=== PATIENT | male | born 1955 | race Caucasian/White ===

== ENCOUNTER 2023-10-11 23:16 | Observation (INO) ==
[2023-10-11] MEDS: OPTIRAY 320 125ml IV ONE (23:30)
[2023-10-11 23:54] LABS: iSTAT Hemoglobin 12.6 g/dl (14.0-18.0); iSTAT Ionized Calcium 1.07 mmol/l (1.12-1.32); iSTAT Potassium 3.6 mmol/L (3.3-5.0)
--- NOTE | 2023-10-11 23:59 | CT Scan Report ---
Exam(s): CTA HEAD With Contrast IV Amt: 119 cc opti 320 EXAM: CT Angiography Head With Intravenous Contrast CLINICAL HISTORY: Reason for exam: neuro deficit, acute stroke suspected. TECHNIQUE: Axial computed tomographic angiography images of the head with intravenous contrast. Automated exposure control was utilized for the study. A dose lowering technique was utilized adhering to the principles of ALARA. MIP reconstructed images were created and reviewed. Mild motion artifact. CONTRAST: Patient received 119 cc opti 320 of IV contrast COMPARISON: Head CT done earlier. FINDINGS: Right internal carotid artery: Patent. Right anterior cerebral artery: Patent. Right middle cerebral artery: Patent. Right posterior cerebral artery: Patent. Right vertebral artery: Patent. Left internal carotid artery: Patent. Left anterior cerebral artery: Patent. Left middle cerebral artery: Patent. Left posterior cerebral artery: Patent. Left vertebral artery: Patent. Basilar artery: Patent. Other: No AVM or aneurysm with attention to the left posterior temporal region. IMPRESSION: 1. No aneurysm or large vessel occlusion. Communications: Call Doctor Stroke Electronically signed by: Evon Marshall M.D. 10/11/23 23:58 PM
--- NOTE | 2023-10-12 | CT Scan Report ---
Exam(s): CT HEAD Without Contrast EXAM: CT Head Without Intravenous Contrast CLINICAL HISTORY: Reason for exam: neuro deficit, acute stroke suspected. TECHNIQUE: Axial computed tomography images of the head/brain without intravenous contrast. Automated exposure control was utilized for the study. A dose lowering technique was utilized adhering to the principles of ALARA. COMPARISON: None. FINDINGS: Brain: There is a 13 mm hypodensity in the left posterior temporal lobe, of uncertain significance, may be chronic, such as chronic infarct or unusual cavernous hemangioma; though neoplasm not excluded. MRI brain with and without contrast recommended for further evaluation. No mass effect or acute infarct. No acute hemorrhage. Mild atrophy and chronic white matter disease. Ventricles: No hydrocephalus or midline shift. Bones/joints: No acute finding. Soft tissues: No scalp hematoma. Visualized Sinuses: Opacified right maxillary sinus, otherwise, clear. Mastoid air cells: No mastoid effusion. IMPRESSION: 1. Nonspecific hypodensity left temporal lobe, may be chronic, though MRI brain with and without contrast recommended to entirely rule out neoplasm. Communications: Call Doctor Stroke Electronically signed by: Evon Marshall M.D. 10/11/23 23:58 PM
--- NOTE | 2023-10-12 00:01 | CT Scan Report ---
Exam(s): CTA NECK With Contrast IV Amt: 119 cc opti 320 EXAM: CT Angiography Neck With Intravenous Contrast CLINICAL HISTORY: Reason for exam: neuro deficit, acute stroke suspected. TECHNIQUE: Routine carotid CT angiography protocol was performed with intravenous contrast. NASCET criteria using the distal ICAs for comparison were used for evaluation of stenoses. Automated exposure control was utilized for the study. A dose lowering technique was utilized adhering to the principles of ALARA. MIP reconstructed images were created and reviewed. Artifact from metal associated with the right shoulder. CONTRAST: Patient received 119 cc opti 320 of IV contrast COMPARISON: None. FINDINGS: Right common carotid artery: Patent. Right internal carotid artery: Patent. Right vertebral artery: Patent. Codominant. Left common carotid artery: Patent. Left internal carotid artery: Patent. Left vertebral artery: Patent. Other: Atherosclerosis bilateral carotid bifurcation, without significant stenosis. IMPRESSION: 1. No dissection, occlusion, or significant stenosis. CAROTID STENOSIS REFERENCE USING NASCET CRITERIA: % ICA stenosis = (1 - narrowest ICA diameter/diameter of distal cervical ICA) x 100. Mild - <50% stenosis. Moderate - 50-69% stenosis. Severe - 70-94% stenosis. Near occlusion - 95-99% stenosis. Occluded - 100% stenosis. Communications: Call Doctor Stroke Electronically signed by: Evon Marshall M.D. 10/12/23 00:00 AM
[2023-10-12 00:03] LABS: Basophils # (auto) 0.07 K/uL (0.00-0.20); Basophils % (auto) 0.9 %; Eosinophils # (auto) 0.47 K/uL (0.00-0.50); Eosinophils % (auto) 5.9 %; Hematocrit (blood only) 36.5 % (42.0-52.0); Hemoglobin 12.8 g/dl (14.0-18.0); Immature Granulocytes # (auto) 0.04 K/uL (0.01-0.20); Immature Granulocytes % (auto) 0.5 %; Lymphocytes # (auto) 1.26 K/uL (1.20-3.40); Lymphocytes % (auto) 15.9 %; Mean Corpuscular Hemoglobin 30.5 pg (25.0-34.0); Mean Corpuscular Hgb Conc 35.1 g/dL (32.0-36.0); Mean Corpuscular Volume 86.9 fL (80.0-100.0); Mean Platelet Volume 9.1 fL (9.4-12.4); Monocytes # (auto) 0.69 K/uL (0.11-0.59); Monocytes % (auto) 8.7 %; Neutrophils # (auto) 5.41 K/uL (1.40-6.50); Neutrophils % (auto) 68.1 %; Platelet Count 284 K/uL (130-400); RDW Coefficient of Variation 12.7 % (11.5-14.5); RDW Standard Deviation 39.8 fL (36.4-46.3); White Blood Count 7.94 K/ul (4.8-10.8)
[2023-10-12] MEDS: Patient's ALLERGY Info needs ENTERED STA (00:04)
[2023-10-12] MEDS: Patient's HEIGHT &/or WEIGHT Needed STA (00:04)
[2023-10-12 00:16] LABS: Albumin Globulin Ratio 1.2 (0.9-2); Albumin Level 3.9 gm/dl (3.4-5.0); BUN Creatinine Ratio 14.2 (10-20); Calcium 9.2 mg/dl (8.6-10.3); Creatinine Clr Calc Pharmacy 81.6 ml/min; Est GFR (African American) 84.3 ml/min; Est GFR (Non-African American) 72.8 ml/min; Globulin 3.2 gm/dl (2.5-4.0); Magnesium 1.6 mg/dl (1.7-2.4); Potassium 3.6 mmol/L (3.5-5.1); Total Protein 7.1 gm/dl (6.0-8.3)
[2023-10-12 00:23] LABS: Troponin I High Sensitivity 7.1 pg/ml (0-20)
[2023-10-12 00:30] LABS: Partial Thromboplastin Time 27 Seconds (21-31); Prothrombin Time 11.3 Seconds (9.0-12.0)
--- NOTE | 2023-10-12 00:32 | Emergency Department Note ---
Impression & Plan Stroke-like symptoms Admit to the [facility] ED Provider Note NAME: HAILEY GIRON AGE: 67 SEX: Male INFORMANT: EMS ED PROVIDER(S): Catrachita Stein DO CHIEF COMPLAINT: stroke symptoms PLAN: Disposition: admit to the [facility] MEDICAL DECISION MAKING: this is a 67-year-old male patient who presents to the emergency department with altered mental status. Patient's last known well time was 1900 tonight. Patient's noted that he was having some difficulty with speech that seemed to be worsening throughout the evening. The patient is visiting from [place]. EMS was called to their hotel. Patient has a baseline tremor for which she takes Keppra. He is followed at [facility]. Patient was a stroke alert upon presentation to the emergency department. He went directly for CT scan of the brain, CT angiogram of the brain and neck which showed hypodensity in the left temporal region of the brain but no acute infarct or hemorrhage. The patient was not a candidate for tPA because last known well was approximately 5 hours before presentation and his symptoms were improving. Laboratory studies revealed no evidence of hypoglycemia or significant hyperglycemia. Coagulation studies were normal. There is no significant leukocytosis or anemia. I discussed the case with the [facility] doctor as well as the [facility] neurologist. The patient presented to the ER primarily with an expressive aphasia. It was improving throughout his stay here in the emergency department. He will be given oral aspirin, oral atorvastatin, IV normal saline, IV magnesium and will go for MRI with and without contrast and with SWI sequencing to rule out hemorrhage. Patient will also receive an EEG as an inpatient. I discussed the case with the [facility] Hospitalist and they will evaluate for further inpatient care. Care/management discussed with: Dr. Herb johnson; policy manager; [facility] neurologist, [facility] Triage Nursing notes: reviewed and agree with them. Vital Signs: reviewed and remarkable for hypertension Additional History obtained from: EMS and the Prior/ Outside/ External records reviewed: [none] Differential Diagnosis: CVA, intracranial hemorrhage, seizure, hypoglycemia Diagnostics, independently interpreted by me: ECG: patient suffers from tremors and has significant baseline artifact- difficult to interpret-baseline sinus rhythm Cardiac Monitoring: sinus rhythm at 88 Imaging studies: CT scan of the brain: As per stat rad CTA brain: As per stat rad CTA neck: As per stat rad HPI: 67 year old Male arrives for evaluation of altered mental status/ stroke symptoms. around 7 PM this evening, the patient began to have difficulty with speech according to the . They are visiting from the [facility] and staying in a hotel. He does suffer from a baseline tremor and diabetes but no history of seizures or stroke. Patient had some beer drinker around 1 PM in the afternoon PAST MEDICAL HISTORY: Diabetes, tremor, hypertension, hyperlipidemia SOCIAL HISTORY: lives with his , he lives in [place] with his HOME MEDICATIONS: see list ALLERGIES: See list VITALS: See Below PHYSICAL EXAMINATION: HEENT: Head - normocephalic and atraumatic. Pupils are equal, round, and reactive to light. Extraocular eye muscles are intact and sclera are anicteric. Ears - bilaterally patent canals with noninjected tympanic membranes and no evidence of hemotympanum. Nose - moist nasal mucosa without discharge. Mouth - moist buccal mucosa. Oropharynx is nonerythematous and there is no tonsillar exudate or edema noted. Neck: Supple; no JVD, nuchal rigidity, cervical lymphadenopathy, or auscultated bruits. Heart: Regular rate and rhythm. There is a normal S1 and S2 with no murmurs, clicks, or gallops appreciated. Lungs: Clear to auscultation bilaterally with no wheezes, rales, or rhonchi. Abdomen: Soft, completely nontender, nondistended, with good bowel sounds. There are no palpable pulsatile masses or hepatosplenomegaly. There is no guarding, rigidity, or rebound noted. Extremities: No evidence of cyanosis, clubbing, or edema. There are easily palpable peripheral pulses. Neuro: Patient has a significant baseline tremor. The patient is awake and alert. He is able to follow commands. He is unable to answer questions and has an expressive aphasia. He is unable to identify simple objects. He has 5 out of 5 muscle strength in all 4 extremities. He seems to have normal Ysbtay-qb-faje ability that is slightly difficult to test because of his tremor. Emergency department course: The patient was evaluated in room A-1 as a stroke alert after coming from CAT scan. Make complete neurological evaluation was performed. Laboratory studies were drawn. An order was placed for continuous cardiac monitoring. The patient was in a normal sinus rhythm at a rate of 88. A twelve-lead EKG was attempted. I discussed the case with the [facility] neurologist. Patient was bolused with IV normal saline solution and started on IV normal saline drip. He was given oral aspirin and oral atorvastatin. He was started on IV magnesium. Patient's arrived at the bedside and was able to give additional history. I discussed the case with the [facility] Hospitalist and they will evaluate for further inpatient care. Past Med/Surg History Problem List (Updated 10/12/23 @ 18:27 by Catrachita Stein DO) Stroke-like symptoms (Acute) Social History Smoking Status: Former smoker Hx Alcohol Use: Yes Alcohol type: beer, wine and hard liquor Hx Substance Use: Yes Last Used Substance: Days (ago) Substance Use Type Other:: medical marijuana daily for sleep Communication Ability: Effective [employer] Maintainer Required: No Beliefs That Will Affect Care: None Current Living Situation: Spouse Other Information That Helps Us Care for You: No Feels Safe at Home: Yes Safety Concerns: Feels Safe At This Time Assistive Devices: Glasses Allergies Allergies Allergy/AdvReac Type Severity Reaction Status Date / Time indomethacin Allergy Unknown Verified 10/12/23 12:34 allopurinol AdvReac Nausea Verified 10/12/23 01:16 duloxetine [From Cymbalta] AdvReac hypnagogia Verified 10/12/23 01:16 Fish Containing Products AdvReac Unknown Verified 10/12/23 12:34 shellfish derived AdvReac Unknown Verified 10/12/23 12:34 Home Meds Home Medications Medication Instructions Recorded Confirmed amlodipine 10 mg tablet 10 mg PO DAILY 10/12/23 10/12/23 buspirone 15 mg tablet 15 mg PO BID 10/12/23 10/12/23 colchicine 0.6 mg tablet 0.6 mg PO DAILY 10/12/23 10/12/23 febuxostat 40 mg tablet 40 mg PO DAILY 10/12/23 10/12/23 levetiracetam 500 mg tablet 500 mg PO BID 10/12/23 10/12/23 lorazepam 0.5 mg tablet 0.5 mg PO DAILY PRN Anxiety 10/12/23 10/12/23 metformin 500 mg tablet,extended 500 mg PO QAM 10/12/23 10/12/23 release 24 hr pravastatin 80 mg tablet 80 mg PO DAILY 10/12/23 10/12/23 propranolol 120 mg capsule,24 120 mg PO DAILY 10/12/23 10/12/23 hr,extended release semaglutide 2 mg/dose (8 mg/3 mL) 2 mg subcut .WEEK 10/12/23 10/12/23 subcutaneous pen injector (Ozempic) trazodone 150 mg tablet 150 mg PO HS 10/12/23 10/12/23 venlafaxine 150 mg 150 mg PO QAM 10/12/23 10/12/23 capsule,extended release 24 hr venlafaxine 75 mg capsule,extended 75 mg PO QAM 10/12/23 10/12/23 release 24 hr Results & Data (ED) Vital Signs Vital Signs - 24 hr 10/11/23 23:53 10/12/23 00:01 10/12/23 00:03 Temperature 37 C Temperature Source Oral Pulse Rate 75 76 Pulse Rate [Finger] 88 Pulse Rhythm Regular Pulse Rhythm [Finger] Regular Pulse Strength Normal Pulse Strength [Finger] Normal Respiratory Rate 18 20 Respiratory Effort / Characteristics Non-Labored Spontaneous Non-Labored Spontaneous Respiratory Depth Normal Normal Blood Pressure 162/98 H Blood Pressure [Right Arm] 162/98 H Blood Pressure Mean 119 Blood Pressure Mean [Right Arm] 119 Blood Pressure Position Sitting Pulse Oximetry 100 99 Oxygen Delivery Method Room Air Room Air Sepsis Recent Fever Within 48 Hours No Sepsis New/Unexplained Change in Mental Status N/A Sepsis Action Taken by Nursing No Action Required Laboratory Data 10/12/23 05:21 10/12/23 05:21 Lab Results 10/11/23 10/11/23 10/11/23 Range/Units 23:38 23:41 23:42 WBC 7.94 (4.8-10.8) K/ul RBC 4.20 L (4.70-6.10) M/uL Hgb 12.8 L (14.0-18.0) g/dl POC Hgb 12.6 L (14.0-18.0) g/dl Hct 36.5 L (42.0-52.0) % POC Hct 37 L (42-52) % MCV 86.9 (80.0-100.0) fL MCH 30.5 (25.0-34.0) pg MCHC 35.1 (32.0-36.0) g/dL RDW Std Deviation 39.8 (36.4-46.3) fL RDW Coeff of [place] 12.7 (11.5-14.5) % Plt Count 284 (130-400) K/uL MPV 9.1 L (9.4-12.4) fL Immature Gran % (Auto) 0.5 % Neut % (Auto) 68.1 % Lymph % (Auto) 15.9 % Emmons % (Auto) 8.7 % Eos % (Auto) 5.9 % Baso % (Auto) 0.9 % Neut # (Auto) 5.41 (1.40-6.50) K/uL Lymph # (Auto) 1.26 (1.20-3.40) K/uL Emmons # (Auto) 0.69 H (0.11-0.59) K/uL Eos # (Auto) 0.47 (0.00-0.50) K/uL Baso # (Auto) 0.07 (0.00-0.20) K/uL Immature Gran # (Auto) 0.04 (0.01-0.20) K/uL PT 11.3 (9.0-12.0) Seconds INR 1.0 (0.9-1.1) APTT 27 (21-31) Seconds PTT Ratio 1.0 POC Sodium 134 L (135-144) mmol/L Sodium 132 L (136-145) mmol/L POC Potassium 3.6 (3.3-5.0) mmol/L Potassium 3.6 (3.5-5.1) mmol/L POC Chloride 101 (101-112) mmol/L Chloride 101 (98-107) mmol/L Carbon Dioxide 19 L (21-32) mmol/L POC Total CO2 17 L (24-31) mmol/L Anion Gap 12 H (3-11) POC Anion Gap 20.0 (16-25) mmol/L POC BUN 13 (7-18) mg/dl BUN 15 (6-23) mg/dl Creatinine 1.06 (0.6-1.4) mg/dl POC Creatinine 1.0 (0.6-1.3) mg/dl Est Cr Clr Drug Dosing 81.6 ml/min Est GFR ( Amer) 84.3 ml/min Est GFR (Non-Af Amer) 72.8 ml/min BUN/Creatinine Ratio 14.2 (10-20) Glucose 134 H (70-99(Fasting)) mg/dl POC Glucose (other) 131 H (70-99) mg/dl Calcium 9.2 (8.6-10.3) mg/dl POC Ioniz Calcium Taz 1.07 L (1.12-1.32) mmol/l Magnesium 1.6 L (1.7-2.4) mg/dl Total Bilirubin 1.0 (0.2-1.0) mg/dl AST 15 (13-39) U/L ALT 10 (7-52) U/L Alkaline Phosphatase 65 (34-104) U/L Troponin I High Sens 7.1 (0-20) pg/ml Total Protein 7.1 (6.0-8.3) gm/dl Albumin 3.9 (3.4-5.0) gm/dl Globulin 3.2 (2.5-4.0) gm/dl Albumin/Globulin Ratio 1.2 (0.9-2) Blood Type O Positive Antibody Screen NEGATIVE Administered Medications Amlodipine Besylate (Amlodipine Besylate 5 Mg Tab) 10 mg PO DAILY RANDY Stop: 11/11/23 08:59 Last Admin: 10/12/23 08:08 Dose: 10 mg Documented By: KHADRA Buspirone HCl (Buspirone 15 Mg Tab) 15 mg PO BID RANDY Stop: 11/11/23 08:59 Last Admin: 10/12/23 08:09 Dose: 15 mg Documented By: KHADRA Colchicine (Colchicine 0.6 Mg Tab) 0.6 mg PO DAILY RANDY Stop: 11/11/23 08:59 Last Admin: 10/12/23 08:08 Dose: 0.6 mg Documented By: KHADRA Insulin Aspart (Insulin Aspart Per Unit Charge) 0 units SC Q6 RANDY Stop: 11/11/23 05:59 Last Admin: 10/12/23 17:15 Dose: Not Given Documented By: Admin: 10/12/23 12:19 Dose: Not Given Documented By: Admin: 10/12/23 06:36 Dose: Not Given Documented By: ANDREWS Levetiracetam (Levetiracetam 500 Mg Tab) 500 mg PO BID RANDY Stop: 11/11/23 08:59 Last Admin: 10/12/23 08:09 Dose: 500 mg Documented By: KHADRA Miscellaneous (Febuxostat 40 Mg - Order Awaiting Action) 1 each N/A QS [facility] Stop: 11/11/23 08:29 Last Admin: 10/12/23 12:20 Dose: Not Given Documented By: Admin: 10/12/23 08:10 Dose: Not Given Documented By: KHADRA Propranolol HCl (Propranolol Hcl 60 Mg [place]) 120 mg PO DAILY [facility] Stop: 11/11/23 08:59 Last Admin: 10/12/23 08:09 Dose: 120 mg Documented By: KHADRA Venlafaxine HCl (Venlafaxine Hcl Xr 75 Mg Capxr) [facility] [place] Stop: 11/11/23 08:59 Last Admin: 10/12/23 08:09 Dose: 75 mg Documented By: KHADRA Venlafaxine HCl (Venlafaxine Hcl Xr 150 Mg Capxr) 150 mg PO [facility] Stop: 11/11/23 08:59 Last Admin: 10/12/23 08:09 Dose: 150 mg Documented By: KHADRA Discontinued Medications Aspirin (Aspirin Chew 324 Mg) 324 mg PO NOW STA Stop: 10/12/23 00:44 Last Admin: 10/12/23 00:54 Dose: 324 mg Documented By: MICKEY Aspirin (Aspirin 81 Mg Ectab) 81 mg PO [facility] Stop: 11/11/23 13:14 Last Admin: 10/12/23 13:25 Dose: Not Given Documented By: KHADRA Atorvastatin Calcium (Atorvastatin 40 Mg Tab) 40 mg PO QA STA Stop: 10/12/23 00:44 Last Admin: 10/12/23 00:54 Dose: 40 mg Documented By: MICKEY Clopidogrel Bisulfate (Clopidogrel Bisulfate 75 Mg Tab) 75 mg PO NOW ONE Stop: 10/12/23 13:17 Last Admin: 10/12/23 14:55 Dose: 75 mg Documented By: KHADRA Gadobutrol (Gadobutrol 30ml Vial) 9 ml IV ONCE ONE Stop: 10/12/23 13:49 Last Admin: 10/12/23 13:49 Dose: 9 ml Documented By: VICKY Sodium Chloride (Nss) 500 mls @ 999 mls/hr IV .Q31M ONE Stop: 10/12/23 01:13 Last Infusion: 10/12/23 01:27 Dose: Infused Documented By: Admin: 10/12/23 00:59 Dose: 999 mls/hr Documented By: MICKEY Magnesium Sulfate/Dextrose (Magnesium Sulfate / D5w) 1 gm in 100 mls @ 200 mls/hr IV Q30M RANDY Stop: 10/12/23 01:44 Last Infusion: 10/12/23 02:00 Dose: Infused Documented By: Admin: 10/12/23 01:27 Dose: 200 mls/hr Documented By: Infusion: 10/12/23 01:24 Dose: Infused Documented By: Admin: 10/12/23 00:54 Dose: 200 mls/hr Documented By: MICKEY Sodium Chloride (Nss) 500 mls @ 125 mls/hr IV .Q4H RANDY Stop: 11/11/23 00:44 Last Infusion: 10/12/23 03:01 Dose: Infused Documented By: Admin: 10/12/23 00:59 Dose: 125 mls/hr Documented By: MICKEY Sodium Chloride (Nss) 1,000 mls @ 100 mls/hr IV .Q10H RANDY Stop: 10/12/23 12:53 Last Infusion: 10/12/23 13:09 Dose: Infused Documented By: Admin: 10/12/23 03:09 Dose: 100 mls/hr Documented By: ANDREWS Acetaminophen (Ofirmev) 1,000 mg in 100 mls @ 400 mls/hr IV NOW STA Stop: 10/12/23 03:35 Last Infusion: 10/12/23 04:15 Dose: Infused Documented By: Admin: 10/12/23 03:48 Dose: 400 mls/hr Documented By: ANDREWS Ioversol (Optiray 320 125ml) 119 ml IV ONCE ONE Stop: 10/11/23 23:30 Last Admin: 10/11/23 23:30 Dose: 119 ml Documented By: JAMILAH Miscellaneous (Patient's Height &/Or Weight Needed) 1 each N/A NOW STA Stop: 10/11/23 23:40 Last Admin: 10/12/23 00:04 Dose: Not Given Documented By: MICKEY Gutiérrezcellaneous Information (Patient's Allergy Info Needs Entered) 1 each N/A NOW STA Stop: 10/11/23 23:40 Last Admin: 10/12/23 00:04 Dose: Not Given Documented By: MICKEY Pravastatin Sodium (Pravastatin Sod 40 Mg Tab) 80 mg PO DAILY RANDY Stop: 11/11/23 08:59 Last Admin: 10/12/23 08:09 Dose: 80 mg Documented By: KHADRA Imaging Data Radiologist's Impression: Head CT 10/11/23 23:27 CR Exam(s): CT HEAD Without Contrast EXAM: CT Head Without Intravenous Contrast CLINICAL HISTORY: Reason for exam: neuro deficit, acute stroke suspected. TECHNIQUE: Axial computed tomography images of the head/brain without intravenous contrast. Automated exposure control was utilized for the study. A dose lowering technique was utilized adhering to the principles of ALARA. COMPARISON: None. FINDINGS: Brain: There is a 13 mm hypodensity in the left posterior temporal lobe, of uncertain significance, may be chronic, such as chronic infarct or unusual cavernous hemangioma; though neoplasm not excluded. MRI brain with and without contrast recommended for further evaluation. No mass effect or acute infarct. No acute hemorrhage. Mild atrophy and chronic white matter disease. Ventricles: No hydrocephalus or midline shift. Bones/joints: No acute finding. Soft tissues: No scalp hematoma. Visualized Sinuses: Opacified right maxillary sinus, otherwise, clear. Mastoid air cells: No mastoid effusion. IMPRESSION: 1. Nonspecific hypodensity left temporal lobe, may be chronic, though MRI brain with and without contrast recommended to entirely rule out neoplasm. Communications: Call Doctor Stroke Electronically signed by: Evon Marshall M.D. 10/11/23 23:58 PM Head CTA 10/11/23 23:27 CR Exam(s): CTA HEAD With Contrast IV Amt: 119 cc opti 320 EXAM: CT Angiography Head With Intravenous Contrast CLINICAL HISTORY: Reason for exam: neuro deficit, acute stroke suspected. TECHNIQUE: Axial computed tomographic angiography images of the head with intravenous contrast. Automated exposure control was utilized for the study. A dose lowering technique was utilized adhering to the principles of ALARA. MIP reconstructed images were created and reviewed. Mild motion artifact. CONTRAST: Patient received 119 cc opti 320 of IV contrast COMPARISON: Head CT done earlier. FINDINGS: Right internal carotid artery: Patent. Right anterior cerebral artery: Patent. Right middle cerebral artery: Patent. Right posterior cerebral artery: Patent. Right vertebral artery: Patent. Left internal carotid artery: Patent. Left anterior cerebral artery: Patent. Left middle cerebral artery: Patent. Left posterior cerebral artery: Patent. Left vertebral artery: Patent. Basilar artery: Patent. Other: No AVM or aneurysm with attention to the left posterior temporal region. IMPRESSION: 1. No aneurysm or large vessel occlusion. Communications: Call Doctor Stroke Electronically signed by: Evon Marshall M.D. 10/11/23 23:58 PM Neck CTA 10/11/23 23:27 CR Exam(s): CTA NECK With Contrast IV Amt: 119 cc opti 320 EXAM: CT Angiography Neck With Intravenous Contrast CLINICAL HISTORY: Reason for exam: neuro deficit, acute stroke suspected. TECHNIQUE: Routine carotid CT angiography protocol was performed with intravenous contrast. NASCET criteria using the distal ICAs for comparison were used for evaluation of stenoses. Automated exposure control was utilized for the study. A dose lowering technique was utilized adhering to the principles of ALARA. MIP reconstructed images were created and reviewed. Artifact from metal associated with the right shoulder. CONTRAST: Patient received 119 cc opti 320 of IV contrast COMPARISON: None. FINDINGS: Right common carotid artery: Patent. Right internal carotid artery: Patent. Right vertebral artery: Patent. Codominant. Left common carotid artery: Patent. Left internal carotid artery: Patent. Left vertebral artery: Patent. Other: Atherosclerosis bilateral carotid bifurcation, without significant stenosis. IMPRESSION: 1. No dissection, occlusion, or significant stenosis. CAROTID STENOSIS REFERENCE USING NASCET CRITERIA: % ICA stenosis = (1 - narrowest ICA diameter/diameter of distal cervical ICA) x 100. Mild - <50% stenosis. Moderate - 50-69% stenosis. Severe - 70-94% stenosis. Near occlusion - 95-99% stenosis. Occluded - 100% stenosis. Communications: Call Doctor Stroke Electronically signed by: Evon Marshall M.D. 10/12/23 00:00 AM Discharge Plan Visit Data Chief Complaint: Stroke Alert Stated Complaint: Stroke Symptoms ED Provider: Catrachita Stein Discharge Problem: Stroke-like symptoms Patient Disposition: Admitted As Inpatient Discharge Instructions Interventions: ED Discharge Assessment Last Done: 10/12/23 02:36
[2023-10-12] MEDS: MAGNESIUM SULFATE / D5W 1 GM/100 ML BAG IV SCH (00:54)
[2023-10-12] MEDS: ATORVASTATIN 40 MG TAB PO STA (00:54)
[2023-10-12] MEDS: ASPIRIN CHEW 324 MG PO STA (00:54)
[2023-10-12] MEDS: SODIUM CHLORIDE 0.9% 500 ML IV ONE (00:59)
[2023-10-12] MEDS: SODIUM CHLORIDE 0.9% 500 ML IV SCH (00:59)
--- NOTE | 2023-10-12 01:58 | History & Physical Report ---
Date of Service October 12, 2023 Assessment & Plan (1) Stroke-like symptoms: Plan: 67-year-old male with past medical history significant for diabetes, hypertension, hyperlipidemia, tremors, depression who is from [facility], came to [employer] for [place] [facility] 911 get together presents with strokelike symptoms started around 7 PM. Patient had episode of vomiting and then suddenly could not talk. EMS was called and per EMS patient also had some difficulty swallo wing. Patient also seemed confused. Patient was stroke alert. Initial workup with CT head CTA head and neck with unremarkable. As patient symptoms were improving and he was out of the window TNK was not given. Currently patient is alert and oriented x 3. Answering appropriately. He has tremors which is baseline as per his . He is on Keppra for tremors. Never had this kind of episode before. Denies any headache. Vision is okay. Still has some nausea. There was some runny nose today. No cough. No fevers. Denies any chest pain or shortness of breath. No abdominal pain. Normal bowel and bladder movements. Hemodynamics are okay currently. Strokelike symptoms Patient seem to had expressive aphasia which is improved now CT head, CTA head and neck unremarkable [facility] was contacted by ER Will follow MRI brain with and without contrast and also EEG Speech evaluation PT OT Follow lipid profile HbA1c level Continue home aspirin and statin Telemetry Gentle fluids N.p.o. for now until speech evaluation Consult neurology in a.m. for further recommendations Hypertension Continue home amlodipine and propranolol Hyperlipidemia Continue home statin Diabetes Ozempic will be held Will hold metformin Sliding scale Follow HbA1c levels and blood sugars Depression Continue home medications Tremors On propranolol and Keppra Gout Seems to be on colchicine and febuxostat Hyponatremia Sodium 132 Getting fluids Will follow labs DVT prophylaxis SCDs for now Disposition Telemetry Full code. History of Present Illness Chief Complaint: Strokelike symptoms Primary Care Provider: KISHA CARPENTER 67-year-old male with past medical history significant for diabetes, hypertension, hyperlipidemia, tremors, depression who is from [facility], came to [employer] for [place] [facility] 911 get together presents with strokelike symptoms started around 7 PM. Patient had episode of vomiting and then suddenly could not talk. EMS was called and per EMS patient also had some difficulty swallowing. Patient also seemed confused. Patient was stroke alert. Initial workup with CT head CTA head and neck with unremarkable. As patient symptoms were improving and he was out of the window TNK was not given. Currently patient is alert and oriented x 3. Answering appropriately. He has tremors which is baseline as per his . He is on Keppra for tremors. Never had this kind of episode before. Denies any headache. Vision is okay. Still has some nausea. There was some runny nose today. No cough. No fevers. Denies any chest pain or shortness of breath. No abdominal pain. Normal bowel and bladder movements. Hemodynamics are okay currently. Past medical history. As mentioned above Past surgical history. Right shoulder replacement Social history. No smoking. Alcohol occasional. No drug use. Family history. Father had stroke. Paternal aunt had colon cancer. Allergies Allergy/AdvReac Type Severity Reaction Status Date / Time indomethacin Allergy Unknown Verified 10/12/23 01:16 allopurinol AdvReac Nausea Verified 10/12/23 01:16 duloxetine [From Cymbalta] AdvReac hypnagogia Verified 10/12/23 01:16 Home Medications Medication Instructions Recorded Confirmed Type amlodipine 10 mg tablet 10 mg PO DAILY 10/12/23 10/12/23 History buspirone 15 mg tablet 15 mg PO BID 10/12/23 10/12/23 History colchicine 0.6 mg tablet 0.6 mg PO DAILY 10/12/23 10/12/23 History febuxostat 40 mg tablet 40 mg PO DAILY 10/12/23 10/12/23 History levetiracetam 500 mg tablet 500 mg PO BID 10/12/23 10/12/23 History lorazepam 0.5 mg tablet 0.5 mg PO DAILY PRN Anxiety 10/12/23 10/12/23 History metformin 500 mg tablet,extended 500 mg PO QAM 10/12/23 10/12/23 History release 24 hr pravastatin 80 mg tablet 80 mg PO DAILY 10/12/23 10/12/23 History propranolol 120 mg capsule,24 120 mg PO DAILY 10/12/23 10/12/23 History hr,extended release semaglutide 2 mg/dose (8 mg/3 mL) 2 mg subcut .WEEK 10/12/23 10/12/23 History subcutaneous pen injector (Ozempic) trazodone 150 mg tablet 150 mg PO HS 10/12/23 10/12/23 History venlafaxine 150 mg 150 mg PO QAM 10/12/23 10/12/23 History capsule,extended release 24 hr venlafaxine 75 mg capsule,extended 75 mg PO QAM 10/12/23 10/12/23 History release 24 hr Past Med/Surg History Problem List (Updated 10/12/23 @ 02:01 by Elijah Graham MD) Stroke-like symptoms Social History Smoking Status: Former smoker Hx Alcohol Use: Yes Alcohol type: beer, wine and hard liquor Hx Substance Use: Yes Last Used Substance: Days (ago) Substance Use Type Other:: medical marijuana daily for sleep Communication Ability: Effective Principal Software Architect Required: No Beliefs That Will Affect Care: None Current Living Situation: Spouse Other Information That Helps Us Care for You: No Feels Safe at Home: Yes Safety Concerns: Feels Safe At This Time Assistive Devices: Glasses Review of Systems Review of Systems: All systems reviewed & are unremarkable except as noted in HPI & below Physical Exam Physical Exam: General- Not in distress, having tremors Head- atraumatic Eyes- PERRL, EOMI. ENT- oropharynx clear Neck- supple, no JVD. Lungs- clear to auscultation no wheezing or crackles Heart- regular rate rhythm; no murmur, no gallop. Abdomen- normal bowel sounds, soft, nontender, no distension Extremities- no pretibial edema, no erythema seen Neuro- alert, oriented x 3;Tremors of face and upper extremity present, PERRL, EOMI; no facial palsy; no dysarthria; motor 5/5 bilaterally; no pronator drift, co ordination of movements normal, sensations intact, position sense intact. Skin- warm & dry Results & Data Results & Data Vital Signs (Past 12 Hours) Vital Signs Temp Pulse Pulse Resp BP BP Pulse Ox 10/12/23 00:03 76 10/12/23 00:01 88 20 162/98 H 99 10/11/23 23:53 37 C 75 18 162/98 H 100 O2 Del Method 10/12/23 00:03 10/12/23 00:01 Room Air 10/11/23 23:53 Room Air Diagnostic Findings Laboratory Results WBC 7.94 K/ul (4.8-10.8) 10/11/23 23:38 RBC 4.20 M/uL (4.70-6.10) L 10/11/23 23:38 Hgb 12.8 g/dl (14.0-18.0) L 10/11/23 23:38 POC Hgb 12.6 g/dl (14.0-18.0) L 10/11/23 23:42 Hct 36.5 % (42.0-52.0) L 10/11/23 23:38 POC Hct 37 % (42-52) L 10/11/23 23:42 MCV 86.9 fL (80.0-100.0) 10/11/23 23:38 MCH 30.5 pg (25.0-34.0) 10/11/23 23:38 MCHC 35.1 g/dL (32.0-36.0) 10/11/23 23:38 RDW Std Deviation 39.8 fL (36.4-46.3) 10/11/23 23:38 RDW Coeff of [place] 12.7 % (11.5-14.5) 10/11/23 23:38 Plt Count 284 K/uL (130-400) 10/11/23 23:38 MPV 9.1 fL (9.4-12.4) L 10/11/23 23:38 Immature Gran % (Auto) 0.5 % 10/11/23 23:38 Neut % (Auto) 68.1 % 10/11/23 23:38 Lymph % (Auto) 15.9 % 10/11/23 23:38 [place] % (Auto) 8.7 % 10/11/23 23:38 Eos % (Auto) 5.9 % 10/11/23 23:38 Baso % (Auto) 0.9 % 10/11/23 23:38 Neut # (Auto) 5.41 K/uL (1.40-6.50) 10/11/23 23:38 Lymph # (Auto) 1.26 K/uL (1.20-3.40) 10/11/23 23:38 [place] # (Auto) 0.69 K/uL (0.11-0.59) H 10/11/23 23:38 Eos # (Auto) 0.47 K/uL (0.00-0.50) 10/11/23 23:38 Baso # (Auto) 0.07 K/uL (0.00-0.20) 10/11/23 23:38 Immature Gran # (Auto) 0.04 K/uL (0.01-0.20) 10/11/23 23:38 PT 11.3 Seconds (9.0-12.0) 10/11/23 23:38 INR 1.0 (0.9-1.1) 10/11/23 23:38 APTT 27 Seconds (21-31) 10/11/23 23:38 PTT Ratio 1.0 10/11/23 23:38 POC Sodium 134 mmol/L (135-144) L 10/11/23 23:42 Sodium 132 mmol/L (136-145) L 10/11/23 23:38 POC Potassium 3.6 mmol/L (3.3-5.0) 10/11/23 23:42 Potassium 3.6 mmol/L (3.5-5.1) 10/11/23 23:38 POC Chloride 101 mmol/L (101-112) 10/11/23 23:42 Chloride 101 mmol/L (98-107) 10/11/23 23:38 Carbon Dioxide 19 mmol/L (21-32) L 10/11/23 23:38 POC Total CO2 17 mmol/L (24-31) L 10/11/23 23:42 Anion Gap 12 (3-11) H 10/11/23 23:38 POC Anion Gap 20.0 mmol/L (16-25) 10/11/23 23:42 POC BUN 13 mg/dl (7-18) 10/11/23 23:42 BUN 15 mg/dl (6-23) 10/11/23 23:38 Creatinine 1.06 mg/dl (0.6-1.4) 10/11/23 23:38 POC Creatinine 1.0 mg/dl (0.6-1.3) 10/11/23 23:42 Est Cr Clr Drug Dosing 81.6 ml/min 10/11/23 23:38 Est GFR ( Amer) 84.3 ml/min 10/11/23 23:38 Est GFR (Non-Af Amer) 72.8 ml/min 10/11/23 23:38 BUN/Creatinine Ratio 14.2 (10-20) 10/11/23 23:38 Glucose 134 mg/dl (70-99(Fasting)) H 10/11/23 23:38 POC Glucose (other) 131 mg/dl (70-99) H 10/11/23 23:42 Calcium 9.2 mg/dl (8.6-10.3) 10/11/23 23:38 POC Ioniz Calcium Taz 1.07 mmol/l (1.12-1.32) L 10/11/23 23:42 Magnesium 1.6 mg/dl (1.7-2.4) L 10/11/23 23:38 Total Bilirubin 1.0 mg/dl (0.2-1.0) 10/11/23 23:38 AST 15 U/L (13-39) 10/11/23 23:38 ALT 10 U/L (7-52) 10/11/23 23:38 Alkaline Phosphatase 65 U/L (34-104) 10/11/23 23:38 Troponin I High Sens 7.1 pg/ml (0-20) 10/11/23 23:38 Total Protein 7.1 gm/dl (6.0-8.3) 10/11/23 23:38 Albumin 3.9 gm/dl (3.4-5.0) 10/11/23 23:38 Globulin 3.2 gm/dl (2.5-4.0) 10/11/23 23:38 Albumin/Globulin Ratio 1.2 (0.9-2) 10/11/23 23:38 Blood Type O Positive 10/11/23 23:41 Antibody Screen NEGATIVE 10/11/23 23:[address] 10/11/23 23:27 CR Exam(s): CT HEAD Without Contrast EXAM: CT Head Without Intravenous Contrast CLINICAL HISTORY: Reason for exam: neuro deficit, acute stroke suspected. TECHNIQUE: Axial computed tomography images of the head/brain without intravenous contrast. Automated exposure control was utilized for the study. A dose lowering technique was utilized adhering to the principles of ALARA. COMPARISON: None. FINDINGS: Brain: There is a 13 mm hypodensity in the left posterior temporal lobe, of uncertain significance, may be chronic, such as chronic infarct or unusual cavernous hemangioma; though neoplasm not excluded. MRI brain with and without contrast recommended for further evaluation. No mass effect or acute infarct. No acute hemorrhage. Mild atrophy and chronic white matter disease. Ventricles: No hydrocephalus or midline shift. Bones/joints: No acute finding. Soft tissues: No scalp hematoma. Visualized Sinuses: Opacified right maxillary sinus, otherwise, clear. Mastoid air cells: No mastoid effusion. IMPRESSION: 1. Nonspecific hypodensity left temporal lobe, may be chronic, though MRI brain with and without contrast recommended to entirely rule out neoplasm. Communications: Call Doctor Stroke Electronically signed by: Evon Marshall M.D. 10/11/23 23:58 PM Head CTA 10/11/23 23:27 CR Exam(s): CTA HEAD With Contrast IV Amt: 119 cc opti 320 EXAM: CT Angiography Head With Intravenous Contrast CLINICAL HISTORY: Reason for exam: neuro deficit, acute stroke suspected. TECHNIQUE: Axial computed tomographic angiography images of the head with intravenous contrast. Automated exposure control was utilized for the study. A dose lowering technique was utilized adhering to the principles of ALARA. MIP reconstructed images were created and reviewed. Mild motion artifact. CONTRAST: Patient received 119 cc opti 320 of IV contrast COMPARISON: Head CT done earlier. FINDINGS: Right internal carotid artery: Patent. Right anterior cerebral artery: Patent. Right middle cerebral artery: Patent. Right posterior cerebral artery: Patent. Right vertebral artery: Patent. Left internal carotid artery: Patent. Left anterior cerebral artery: Patent. Left middle cerebral artery: Patent. Left posterior cerebral artery: Patent. Left vertebral artery: Patent. Basilar artery: Patent. Other: No AVM or aneurysm with attention to the left posterior temporal region. IMPRESSION: 1. No aneurysm or large vessel occlusion. Communications: Call Doctor Stroke Electronically signed by: Evon Marshall M.D. 10/11/23 23:58 PM Neck CTA 10/11/23 23:27 CR Exam(s): CTA NECK With Contrast IV Amt: 119 cc opti 320 EXAM: CT Angiography Neck With Intravenous Contrast CLINICAL HISTORY: Reason for exam: neuro deficit, acute stroke suspected. TECHNIQUE: Routine carotid CT angiography protocol was performed with intravenous contrast. NASCET criteria using the distal ICAs for comparison were used for evaluation of stenoses. Automated exposure control was utilized for the study. A dose lowering technique was utilized adhering to the principles of ALARA. MIP reconstructed images were created and reviewed. Artifact from metal associated with the right shoulder. CONTRAST: Patient received 119 cc opti 320 of IV contrast COMPARISON: None. FINDINGS: Right common carotid artery: Patent. Right internal carotid artery: Patent. Right vertebral artery: Patent. Codominant. Left common carotid artery: Patent. Left internal carotid artery: Patent. Left vertebral artery: Patent. Other: Atherosclerosis bilateral carotid bifurcation, without significant stenosis. IMPRESSION: 1. No dissection, occlusion, or significant stenosis. CAROTID STENOSIS REFERENCE USING NASCET CRITERIA: % ICA stenosis = (1 - narrowest ICA diameter/diameter of distal cervical ICA) x 100. Mild - <50% stenosis. Moderate - 50-69% stenosis. Severe - 70-94% stenosis. Near occlusion - 95-99% stenosis. Occluded - 100% stenosis. Communications: Call Doctor Stroke Electronically signed by: Evon Marshall M.D. 10/12/23 00:00 AM Code Status & VTE Plan VTE Prophylaxis Plan VTE Prophylaxis will be ordered: Yes
[2023-10-12] MEDS ORDERED: ONDANSETRON INJ 2 MG/ML 2 ML VIAL IV PRN (02:54)
[2023-10-12] MEDS ORDERED: ACETAMINOPHEN 325 MG TAB PO PRN (02:54)
[2023-10-12] MEDS ORDERED: GLUCOSE 40% GEL 15 GM TUBE PO PRN (02:54)
[2023-10-12] MEDS ORDERED: LORazepam 0.5 MG TAB PO PRN (02:54)
[2023-10-12] MEDS ORDERED: CARBOHYDRATES FOR HYPOGLYCEMIA PO PRN (02:54)
[2023-10-12] MEDS ORDERED: GLUCAGON FOR INJ 1 MG VIAL SQ PRN (02:54)
[2023-10-12] MEDS ORDERED: PHARMACIST DISCHARGE MED REC CONSULT PRN (02:54)
[2023-10-12] MEDS ORDERED: NITROGLYCERIN SL 0.4 MG/TAB TAB SL PRN (02:54)
[2023-10-12] MEDS ORDERED: DEXTROSE 50% 50 ML SYRINGE IV PRN (02:54)
[2023-10-12] MEDS ORDERED: GLUCOSE 10 TAB/TUBE PO PRN (02:54)
[2023-10-12] MEDS: SODIUM CHLORIDE 0.9% 1,000 ML IV SCH (03:09)
[2023-10-12] MEDS: ACETAMINOPHEN 1,000 MG/100 ML VIAL IV STA (03:48)
[2023-10-12 05:47] LABS: Basophils # (auto) 0.07 K/uL (0.00-0.20); Basophils % (auto) 0.7 %; Eosinophils % (auto) 3.1 %; Hematocrit (blood only) 33.3 % (42.0-52.0); Hemoglobin 11.6 g/dl (14.0-18.0); Immature Granulocytes # (auto) 0.03 K/uL (0.01-0.20); Immature Granulocytes % (auto) 0.3 %; Lymphocytes # (auto) 1.89 K/uL (1.20-3.40); Lymphocytes % (auto) 19.5 %; Mean Corpuscular Hemoglobin 30.7 pg (25.0-34.0); Mean Corpuscular Hgb Conc 34.8 g/dL (32.0-36.0); Mean Corpuscular Volume 88.1 fL (80.0-100.0); Mean Platelet Volume 9.1 fL (9.4-12.4); Monocytes # (auto) 1.07 K/uL (0.11-0.59); Neutrophils # (auto) 6.35 K/uL (1.40-6.50); Neutrophils % (auto) 65.4 %; Platelet Count 256 K/uL (130-400); RDW Coefficient of Variation 12.8 % (11.5-14.5); Red Blood Count 3.78 M/uL (4.70-6.10); White Blood Count 9.71 K/ul (4.8-10.8)
[2023-10-12 05:57] LABS: BUN Creatinine Ratio 11.1 (10-20); Calcium 8.8 mg/dl (8.6-10.3); Chol HDL Ratio 2.1 (0-5); Creatinine Clr Calc Pharmacy 79.9 ml/min; Est GFR (African American) 82.5 ml/min; Est GFR (Non-African American) 71.1 ml/min; Magnesium 2.1 mg/dl (1.7-2.4); Potassium 3.8 mmol/L (3.5-5.1)
[2023-10-12] MEDS: INSULIN ASPART PER UNIT CHARGE SC SCH ×2 (06:36→20:38)
[2023-10-12] MEDS: COLCHICINE 0.6 MG TAB PO SCH (08:08)
[2023-10-12] MEDS: amLODIPine BESYLATE 5 MG TAB PO SCH (08:08)
[2023-10-12] MEDS: VENLAFAXINE HCL XR 150 MG CAPXR PO SCH (08:09)
[2023-10-12] MEDS: PROPRANOLOL HCL 60 MG LA CAP PO SCH (08:09)
[2023-10-12] MEDS: busPIRone 15 MG TAB PO SCH (08:09)
[2023-10-12] MEDS: levETIRAcetam 500 MG TAB PO SCH (08:09)
[2023-10-12] MEDS: VENLAFAXINE HCL XR 75 MG CAPXR PO SCH (08:09)
[2023-10-12] MEDS: PRAVASTATIN SOD 40 MG TAB PO SCH (08:09)
[2023-10-12 08:45] LABS: Estimated Average Glucose 111 mg/dl; Hemoglobin A1C 5.5 % (4.5-5.6)
--- NOTE | 2023-10-12 09:20 | Communication Note ---
Date of Service: October 12, 2023 Patient seen and examined He is Alert and oriented to person, place, time Answers appropriately to simple questions with short answers. However, he has so me problems expressing himself when he has to tell a story. Seems to have problems finding right words. Reports chronic tremors. No focal deficits in power or sensation on exam Will get MRI brain Continue ASA 81mg daily Discussed with Neuro. 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
[2023-10-12] MEDS: ASPIRIN 81 MG ECTAB PO SCH (13:25)
[2023-10-12] MEDS: GADOBUTROL 30ML VIAL IV ONE (13:49)
--- NOTE | 2023-10-12 14:20 | Neurology Consultation ---
Date of Consultation October 12, 2023 Assessment & Plan (1) Stroke-like symptoms: Recommend continued stroke work up to include the following: Echocardiogram as part of complete stroke workup Continue frequent neurological assessments Obtain stat CT brain without contrast for any acute neurological decline Continue to monitor/control blood pressure & blood glucose Continue to monitor telemetry closely Recommend ZioPatch at DC if no evidence of arrhythmia during inpatient monitoring Continue to monitor renal and hepatic function, keep euvolemic Metabolic workup should include hgbA1c, fasting lipids, homocysteine, TSH, D Dimer, RPR, urinalysis Recommend DAPT for at least 3 weeks Recommend high dose statin therapy indefinitely if tolerated Ok from neurology perspective for VTE prophylaxis PT/OT/SLT to eval and treat Recommend eval for ASMITA dn consider outpatient polysomnography Telehealth Consultation Telehealth Information Telehealth Information: I performed this visit using a real-time telehealth connection between my location and the patients location ([facility]). After connecting through interactive tele-video, patient was identified by name and date of and/or wristband check.Patient (or authorized healthcare customer sales representative) was informed that this was a telemedicine visit and it was being conducted confidentially over secure lines. My office door was closed and no one else was present in the room with me.Patient (or authorized healthcare customer sales representative) provided consent to proceed with the visit, expressed an understanding of privacy and security of the telemedicine visit, and gave permission to have a hospital customer sales representative in the room in order to assist with the visit and to conduct portions of the visit, as needed. I informed the patient (or authorized healthcare customer sales representative) that I reviewed their record and presented the opportunity for them to ask any questions regarding the visit today. The patient agreed to participate. History of Present Illness Reason for Consultation: Stroke like symptoms Requesting Physician: Dr. Cole Attending Physician: Gabriela Cole MD History of Present Illness 67yo right handed male, with significant past medical history including HTN, DM hyperlipidemia presented with report of sudden onset vomiting coupled with changes in mentation and difficulty with speech articulation. Fortunately all symptoms have resolved. He reports family hx of essential tremor and he takes Keppra for that. After lengthy questioning unfortunately he reveals no reported hx of seizure or head trauma. Denies accurately recalling when he was started on Keppra but states his primary care provider manages the medication. He arrived slightly hyponatremic and reports history of chronic renal failure. He has undergone emergent stroke imaging including CT brain without contrast, personally reviewed today, revealing no overt evidence of hemorrhage. CT angiographic studies of head and neck, also personally reviewed today, reveal no overt evidence of large vessel occlusion or significant/flow limiting stenosis. MRI brain with and without contrast performed today, reviewed, revealing no e vidence of acute ischemic stroke or evidence of abnormal/pathological enhancement. I have performed televideo consultation. He is alert & oriented; able to answer all questions appropriately, name objects on televideo monitor, repeat phrases and perform complex/embedded commands without deficit. Neurological exam is non lateralizing/nonfocal in terms of motor strength and coordination. He demonstrates slight LUE intentional tremor. Appears in no apparent distress or discomfort. Allergies Allergy/AdvReac Type Severity Reaction Status Date / Time indomethacin Allergy Unknown Verified 10/12/23 12:34 allopurinol AdvReac Nausea Verified 10/12/23 01:16 duloxetine [From Cymbalta] AdvReac hypnagogia Verified 10/12/23 01:16 Fish Containing Products AdvReac Unknown Verified 10/12/23 12:34 shellfish derived AdvReac Unknown Verified 10/12/23 12:34 Home Medications Medication Instructions Recorded Confirmed Type amlodipine 10 mg tablet 10 mg PO DAILY 10/12/23 10/12/23 History buspirone 15 mg tablet 15 mg PO BID 10/12/23 10/12/23 History colchicine 0.6 mg tablet 0.6 mg PO DAILY 10/12/23 10/12/23 History febuxostat 40 mg tablet 40 mg PO DAILY 10/12/23 10/12/23 History levetiracetam 500 mg tablet 500 mg PO BID 10/12/23 10/12/23 History lorazepam 0.5 mg tablet 0.5 mg PO DAILY PRN Anxiety 10/12/23 10/12/23 History metformin 500 mg tablet,extended 500 mg PO QAM 10/12/23 10/12/23 History release 24 hr pravastatin 80 mg tablet 80 mg PO DAILY 10/12/23 10/12/23 History propranolol 120 mg capsule,24 120 mg PO DAILY 10/12/23 10/12/23 History hr,extended release semaglutide 2 mg/dose (8 mg/3 mL) 2 mg subcut .WEEK 10/12/23 10/12/23 History subcutaneous pen injector (Ozempic) trazodone 150 mg tablet 150 mg PO HS 10/12/23 10/12/23 History venlafaxine 150 mg 150 mg PO QAM 10/12/23 10/12/23 History capsule,extended release 24 hr venlafaxine 75 mg capsule,extended 75 mg PO QAM 10/12/23 10/12/23 History release 24 hr Patient History Social History Smoking Status: Former smoker Hx Alcohol Use: Yes Alcohol type: beer, wine and hard liquor Hx Substance Use: Yes Last Used Substance: Days (ago) Substance Use Type Other:: medical marijuana daily for sleep Communication Ability: Effective Small Engine Technician Required: No Beliefs That Will Affect Care: None Current Living Situation: Spouse Other Information That Helps Us Care for You: No Feels Safe at Home: Yes Safety Concerns: Feels Safe At This Time Assistive Devices: Glasses Physical Exam Neurological Examination: Mental Status: Awake and alert. Oriented to person, place, and time. Fluency naming repetition and comprehension appear grossly intact. Affect remains appropriate. CN testing: I: Denies changes in ability to smell II:Reports no changes in visual acuity III/IV/: No evidence of gaze preference, hippus, nystagmus or roving eye movements V: Facial sensation reportedly grossly intact to light touch bilaterally VII: Facial movements appear without evidence of asymmetry VIII: Hearing appears grossly intact to loud voice bilaterally IX/X: Palate appears to elevate symmetrically XI: Shoulder shrug appears symmetric/ grossly intact bilaterally XII: Tongue protrudes midline without evidence of biting Motor exam: Strength appears grossly intact/symmetric in all extremities Sensory: Sensation is reportedly grossly intact throughout Coordination: Slight trmoer LUE Reflexes: Deferred Gait: Deferred Results & Data Vital Signs (Past 12 Hours) Vital Signs Temp Pulse Pulse Resp BP Pulse Ox O2 Del Method 10/12/23 11:13 36.9 C 62 17 129/74 99 Room Air 10/12/23 08:00 67 10/12/23 08:00 Room Air 10/12/23 07:55 36.7 C 66 19 125/78 99 Room Air 10/12/23 03:10 36.5 C 79 15 111/69 100 Room Air 10/12/23 03:08 73 10/12/23 02:34 36.8 C 74 19 132/76 99 Room Air Laboratory Results Abnormal lab results 10/11/23 10/11/23 10/12/23 Range/Units 23:38 23:42 03:02 RBC 4.20 L (4.70-6.10) M/uL Hgb 12.8 L (14.0-18.0) g/dl POC Hgb 12.6 L (14.0-18.0) g/dl Hct 36.5 L (42.0-52.0) % POC Hct 37 L (42-52) % MPV 9.1 L (9.4-12.4) fL [place] # (Auto) 0.69 H (0.11-0.59) K/uL POC Sodium 134 L (135-144) mmol/L Sodium 132 L (136-145) mmol/L Carbon Dioxide 19 L (21-32) mmol/L POC Total CO2 17 L (24-31) mmol/L Anion Gap 12 H (3-11) Glucose 134 H (70-99(Fasting)) mg/dl POC Glucose 114 H (70-99) mg/dl POC Glucose (other) 131 H (70-99) mg/dl POC Ioniz Calcium Taz 1.07 L (1.12-1.32) mmol/l Magnesium 1.6 L (1.7-2.4) mg/dl 10/12/23 10/12/23 Range/Units 05:21 11:11 RBC 3.78 L (4.70-6.10) M/uL Hgb 11.6 L (14.0-18.0) g/dl POC Hgb (14.0-18.0) g/dl Hct 33.3 L (42.0-52.0) % POC Hct (42-52) % MPV 9.1 L (9.4-12.4) fL [place] # (Auto) 1.07 H (0.11-0.59) K/uL POC Sodium (135-144) mmol/L Sodium 134 L (136-145) mmol/L Carbon Dioxide (21-32) mmol/L POC Total CO2 (24-31) mmol/L Anion Gap (3-11) Glucose (70-99(Fasting)) mg/dl POC Glucose 106 H (70-99) mg/dl POC Glucose (other) (70-99) mg/dl POC Ioniz Calcium Taz (1.12-1.32) mmol/l Magnesium (1.7-2.4) mg/dl Diagnostic Findings Head CT 10/11/23 23:27 CR Exam(s): CT HEAD Without Contrast EXAM: CT Head Without Intravenous Contrast CLINICAL HISTORY: Reason for exam: neuro deficit, acute stroke suspected. TECHNIQUE: Axial computed tomography images of the head/brain without intravenous contrast. Automated exposure control was utilized for the study. A dose lowering technique was utilized adhering to the principles of ALARA. COMPARISON: None. FINDINGS: Brain: There is a 13 mm hypodensity in the left posterior temporal lobe, of uncertain significance, may be chronic, such as chronic infarct or unusual cavernous hemangioma; though neoplasm not excluded. MRI brain with and without contrast recommended for further evaluation. No mass effect or acute infarct. No acute hemorrhage. Mild atrophy and chronic white matter disease. Ventricles: No hydrocephalus or midline shift. Bones/joints: No acute finding. Soft tissues: No scalp hematoma. Visualized Sinuses: Opacified right maxillary sinus, otherwise, clear. Mastoid air cells: No mastoid effusion. IMPRESSION: 1. Nonspecific hypodensity left temporal lobe, may be chronic, though MRI brain with and without contrast recommended to entirely rule out neoplasm. Communications: Call Doctor Stroke Electronically signed by: Evon Marshall M.D. 10/11/23 23:58 PM Head CTA 10/11/23 23:27 CR Exam(s): CTA HEAD With Contrast IV Amt: 119 cc opti 320 EXAM: CT Angiography Head With Intravenous Contrast CLINICAL HISTORY: Reason for exam: neuro deficit, acute stroke suspected. TECHNIQUE: Axial computed tomographic angiography images of the head with intravenous contrast. Automated exposure control was utilized for the study. A dose lowering technique was utilized adhering to the principles of ALARA. MIP reconstructed images were created and reviewed. Mild motion artifact. CONTRAST: Patient received 119 cc opti 320 of IV contrast COMPARISON: Head CT done earlier. FINDINGS: Right internal carotid artery: Patent. Right anterior cerebral artery: Patent. Right middle cerebral artery: Patent. Right posterior cerebral artery: Patent. Right vertebral artery: Patent. Left internal carotid artery: Patent. Left anterior cerebral artery: Patent. Left middle cerebral artery: Patent. Left posterior cerebral artery: Patent. Left vertebral artery: Patent. Basilar artery: Patent. Other: No AVM or aneurysm with attention to the left posterior temporal region. IMPRESSION: 1. No aneurysm or large vessel occlusion. Communications: Call Doctor Stroke Electronically signed by: Evon Marshall M.D. 10/11/23 23:58 PM Neck CTA 10/11/23 23:27 CR Exam(s): CTA NECK With Contrast IV Amt: 119 cc opti 320 EXAM: CT Angiography Neck With Intravenous Contrast CLINICAL HISTORY: Reason for exam: neuro deficit, acute stroke suspected. TECHNIQUE: Routine carotid CT angiography protocol was performed with intravenous contrast. NASCET criteria using the distal ICAs for comparison were used for evaluation of stenoses. Automated exposure control was utilized for the study. A dose lowering technique was utilized adhering to the principles of ALARA. MIP reconstructed images were created and reviewed. Artifact from metal associated with the right shoulder. CONTRAST: Patient received 119 cc opti 320 of IV contrast COMPARISON: None. FINDINGS: Right common carotid artery: Patent. Right internal carotid artery: Patent. Right vertebral artery: Patent. Codominant. Left common carotid artery: Patent. Left internal carotid artery: Patent. Left vertebral artery: Patent. Other: Atherosclerosis bilateral carotid bifurcation, without significant stenosis. IMPRESSION: 1. No dissection, occlusion, or significant stenosis. CAROTID STENOSIS REFERENCE USING NASCET CRITERIA: % ICA stenosis = (1 - narrowest ICA diameter/diameter of distal cervical ICA) x 100. Mild - <50% stenosis. Moderate - 50-69% stenosis. Severe - 70-94% stenosis. Near occlusion - 95-99% stenosis. Occluded - 100% stenosis. Communications: Call Doctor Stroke Electronically signed by: Evon Marshall M.D. 10/12/23 00:00 AM Medications Administered Home Medications Medication Instructions Recorded Confirmed Last Taken amlodipine 10 mg tablet 10 mg PO DAILY 10/12/23 10/12/23 Unknown buspirone 15 mg tablet 15 mg PO BID 10/12/23 10/12/23 Unknown colchicine 0.6 mg tablet 0.6 mg PO DAILY 10/12/23 10/12/23 Unknown febuxostat 40 mg tablet 40 mg PO DAILY 10/12/23 10/12/23 Unknown levetiracetam 500 mg tablet 500 mg PO BID 10/12/23 10/12/23 Unknown lorazepam 0.5 mg tablet 0.5 mg PO DAILY PRN Anxiety 10/12/23 10/12/23 Unknown metformin 500 mg tablet,extended 500 mg PO QAM 10/12/23 10/12/23 Unknown release 24 hr pravastatin 80 mg tablet 80 mg PO DAILY 10/12/23 10/12/23 Unknown propranolol 120 mg capsule,24 120 mg PO DAILY 10/12/23 10/12/23 Unknown hr,extended release semaglutide 2 mg/dose (8 mg/3 mL) 2 mg subcut .WEEK 10/12/23 10/12/23 Unknown subcutaneous pen injector (Ozempic) trazodone 150 mg tablet 150 mg PO HS 10/12/23 10/12/23 Unknown venlafaxine 150 mg 150 mg PO QAM 10/12/23 10/12/23 Unknown capsule,extended release 24 hr venlafaxine 75 mg capsule,extended 75 mg PO QAM 10/12/23 10/12/23 Unknown release 24 hr Active Medications Generic Name Dose Route Start Last Admin Trade Name Freq PRN Reason Stop Dose Admin Amlodipine Besylate 10 mg 10/12/23 09:00 10/12/23 08:08 Amlodipine Besylate 5 Mg Tab PO 11/11/23 08:59 10 mg DAILY RANDY Administration Buspirone HCl 15 mg 10/12/23 09:00 10/12/23 08:09 Buspirone 15 Mg Tab PO 11/11/23 08:59 15 mg BID RANDY Administration Colchicine 0.6 mg 10/12/23 09:00 10/12/23 08:08 Colchicine 0.6 Mg Tab PO 11/11/23 08:59 0.6 mg DAILY RANDY Administration Insulin Aspart 0 units 10/12/23 06:00 10/12/23 12:19 Insulin Aspart Per Unit Charge SC 11/11/23 05:59 Not Given Q6 RANDY Levetiracetam 500 mg 10/12/23 09:00 10/12/23 08:09 Levetiracetam 500 Mg Tab PO 11/11/23 08:59 500 mg BID RANDY Administration Miscellaneous 1 each 10/12/23 08:30 10/12/23 12:20 Febuxostat 40 Mg - Order Awaiting Action N/A 11/11/23 08:29 Not Given QS RNADY Propranolol HCl 120 mg 10/12/23 09:00 10/12/23 08:09 Propranolol Hcl 60 Mg [place] PO 11/11/23 08:59 120 mg DAILY RANDY Administration Venlafaxine HCl 75 mg 10/12/23 09:00 10/12/23 08:09 Venlafaxine Hcl Xr 75 Mg Capxr PO 11/11/23 08:59 75 mg QAM RANDY Administration Venlafaxine HCl 150 mg 10/12/23 09:00 10/12/23 08:09 Venlafaxine Hcl Xr 150 Mg Capxr PO 11/11/23 08:59 150 mg QAM RANDY Administration
[2023-10-12] MEDS: CLOPIDOGREL BISULFATE 75 MG TAB PO ONE (14:55)
--- NOTE | 2023-10-12 15:03 | Magnetic Resonance Report ---
Brain MRI WITH AND WITHOUT CONTRAST HISTORY: Altered mental status. stroke? TECHNIQUE: Multiplanar multisequence MRI of the brain was performed both before and after the intrave nous administration of contrast. COMPARISON STUDY: Head CT 10/11/2023. FINDINGS: There is no mass, acute intracranial hemorrhage, midline shift, or acute infarct. The masto id air cells are clear. The ventricles and sulci demonstrate are within normal limits for age. Scatte red foci of T2 hyperintensity seen within the periventricular and subcortical white matter are nonspe cific but suggestive of mild microvascular ischemic changes. The major vascular flow voids at the sku ll base are well-maintained. No abnormal enhancement within the brain. Opacified right maxillary sinu s again noted. Old small infarcts seen within the left cerebellar hemisphere. There is a 15 x 13 x 11 mm T2 hyperintense focus within the inferior aspect of the left temporal lobe corresponding to the C T abnormality. This demonstrates cortical T1 hyperintense signal without definite enhancement. 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 No mass o r acute hemorrhage identified. IMPRESSION: 1. No acute infarct or acute intracranial hemorrhage.. 2. 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 3. A 15 x 13 x 11 mm T2 hyperintense focus within the inferior aspect of the left temporal lobe corre sponding to the CT abnormality. This demonstrates cortical T1 hyperintense signal without definite en hancement. 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 One-month brain MRI follow-up recommended to ensure resolution. ACT 112: Negative or not required by law. Electronically signed by: Paul Haywood M.D. 10/12/2023 3:01 PM
[2023-10-12] MEDS: traZODone HCL 50 MG TAB PO SCH (20:39)
--- NOTE | 2023-10-13 07:27 | Electrocardiogram Report ---
Test Reason : Blood Pressure : / mmHG Vent. Rate : 094 BPM Atrial Rate : 073 BPM P-R Int : 124 ms QRS Dur : 066 ms QT Int : 412 ms P-R-T Axes : -87 -36 196 degrees QTc Int : 515 ms Poor data quality, interpretation may be adversely affected Likely atrial fibrillation although sinus rhythm with PACs can be considered Left axis deviation Inferior infarct , age undetermined Abnormal ECG No previous ECGs available Confirmed by Jose Antonio Joyce ([id number]) on 10/13/2023 7:27:27 AM Referred By: REFERRED SELF Confirmed By:Xavier Joyce
[2023-10-13] MEDS: ATORVASTATIN 40 MG TAB PO SCH (08:40)
[2023-10-13] MEDS: ASPIRIN 81 MG ECTAB PO SCH (08:41)
[2023-10-13] MEDS: CLOPIDOGREL BISULFATE 75 MG TAB PO SCH (08:41)
[2023-10-13 08:42] LABS: Basophils % (auto) 1.3 %; Eosinophils # (auto) 0.83 K/uL (0.00-0.50); Eosinophils % (auto) 11.2 %; Hematocrit (blood only) 36.2 % (42.0-52.0); Hemoglobin 12.3 g/dl (14.0-18.0); Immature Granulocytes # (auto) 0.02 K/uL (0.01-0.20); Immature Granulocytes % (auto) 0.3 %; Lymphocytes # (auto) 2.76 K/uL (1.20-3.40); Lymphocytes % (auto) 37.1 %; Mean Corpuscular Hemoglobin 30.8 pg (25.0-34.0); Mean Corpuscular Volume 90.5 fL (80.0-100.0); Mean Platelet Volume 9.5 fL (9.4-12.4); Monocytes # (auto) 0.94 K/uL (0.11-0.59); Monocytes % (auto) 12.6 %; Neutrophils # (auto) 2.79 K/uL (1.40-6.50); Neutrophils % (auto) 37.5 %; Platelet Count 236 K/uL (130-400); RDW Coefficient of Variation 13.2 % (11.5-14.5); White Blood Count 7.44 K/ul (4.8-10.8)
[2023-10-13 08:47] LABS: Calcium 8.9 mg/dl (8.6-10.3); Potassium 4.1 mmol/L (3.5-5.1)
[2023-10-13] MEDS: ENOXAPARIN INJ 40 MG/0.4 ML SYR SQ SCH (08:48)
[2023-10-13 08:52] LABS: BUN Creatinine Ratio 11.9 (10-20); Creatinine Clr Calc Pharmacy 73.2 ml/min; Est GFR (African American) 81.5 ml/min; Est GFR (Non-African American) 70.4 ml/min
--- NOTE | 2023-10-13 08:54 | Pharmacy Report ---
- Date of Service October 13, 2023 - Pharmacy CVA/TIA Medication Review Medications to Prevent Stroke handout has been added to the patients discharge packet. Antiplatelet(s) * Aspirin 81 mg PO daily + clopidogrel 75 mg PO daily x at least 3 weeks Cholesterol * High intensity statin: atorvastatin 40 mg daily DVT Prophylaxis * Enoxaparin SQ Therapeutic Anticoagulation * No history of Afib/Aflutter noted Type 2 Diabetes * Patient has T2DM and patient is prescribed semaglutide
[2023-10-13] MEDS ORDERED: FEBUXOSTAT 40 MG PO SCH (09:00)
[2023-10-13] MEDS ORDERED: STROKE PATIENT DISCHARGE STA ×2 (13:23→13:39)
--- NOTE | 2023-10-13 13:25 | Discharge Summary ---
Date of Service October 13, 2023 Admission HPI Per Admitting Provider 67-year-old male with past medical history significant for diabetes, hypertension, hyperlipidemia, tremors, depression who is from [facility], came to [place] for family get together presents with strokelike symptoms started around 7 PM. Patient had episode of vomiting and then suddenly could not talk. EMS was called and per EMS patient also had some difficulty swallowing. Patient also seemed confused. Patient was stroke alert. Initial workup with CT head CTA head and neck with unremarkable. As patient symptoms were improving and he was out of the window TNK was not given. Currently patient is alert and oriented x 3. Answering appropriately. He has tremors which is baseline as per his . He is on Keppra for tremors. Never had this kind of episode before. Denies any headache. Vision is okay. Still has some nausea. There was some runny nose today. No cough. No fevers. Denies any chest pain or shortness of breath. No abdominal pain. Normal bowel and bladder movements. Hemodynamics are okay currently. Past medical history. As mentioned above Past surgical history. Right shoulder replacement Social history. No smoking. Alcohol occasional. No drug use. Family history. Father had stroke. Paternal aunt had colon cancer. Admission Exam Per Admitting Provider General- Not in distress, having tremors Head- atraumatic Eyes- PERRL, EOMI. ENT- oropharynx clear Neck- supple, no JVD. Lungs- clear to auscultation no wheezing or crackles Heart- regular rate rhythm; no murmur, no gallop. Abdomen- normal bowel sounds, soft, nontender, no distension Extremities- no pretibial edema, no erythema seen Neuro- alert, oriented x 3;Tremors of face and upper extremity present, PERRL, EOMI; no facial palsy; no dysarthria; motor 5/5 bilaterally; no pronator drift, co ordination of movements normal, sensations intact, position sense intact. Skin- warm & dry Principal Diagnosis Possible Transient ischemic attack Hyponatremia Discharge Exam Constitutional + well hydrated; no acute distress Eyes PERRL, conjunctivae normal, anicteric sclerae ENMT external ear and nose normal, oropharynx normal Respiratory normal respiratory effort, lungs clear to auscultation Cardiovascular Rate/Rhythm: regular rate and regular rhythm Gastrointestinal (Abdomen) normal bowel sounds, soft, nontender, no hepatosplenomegaly Musculoskeletal no cyanosis or clubbing, extremities motor strength 5/5 Neurologic PERRL, EOMI, accommodation nl, no face palsy, no dysarthria +tremors Psychiatric A+Ox3, euthymic affect Discharge Data Allergies Allergy/AdvReac Type Severity Reaction Status Date / Time indomethacin Allergy Unknown Verified 10/12/23 12:34 allopurinol AdvReac Nausea Verified 10/12/23 01:16 duloxetine [From Cymbalta] AdvReac hypnagogia Verified 10/12/23 01:16 Fish Containing Products AdvReac Unknown Verified 10/12/23 12:34 shellfish derived AdvReac Unknown Verified 10/12/23 12:34 Consultations 10/12/23 00:45 ED Decision to Admit Stat 10/12/23 08:00 Consult Neurology Routine Ordered Studies 10/11/23 23:27 CT angio head w con Stat CT angio neck with con Stat CT head/brain wo con Stat 10/12/23 02:54 MR brain wo/w con Urgent Hospital Course (1) Stroke-like symptoms: 67-year-old male with past medical history significant for diabetes, hypertensi on, hyperlipidemia, tremors, depression who is from [facility], came to [place] for family get together presents with strokelike symptoms started around 7 PM. Patient had episode of vomiting and then suddenly could not talk. EMS was called and per EMS patient also had some difficulty swallowing. Patient also seemed confused. Patient was stroke alert. CT head was unremarkable As patient symptoms were improving and he was out of the window TNK was not given. He has tremors which is baseline as per his . He is on Keppra for tremors. Strokelike symptoms Possible TIA CT head, CTA head and neck unremarkable MRI brain did not show acute infarct PT/OT/MUSEUM REGISTRAR eval noted HbA1c level 5.5 Neurology evaluated and recommended DAPT for 3 weeks, zio patch/holter monitoring outpatient, high intensity statin Discussed with patient and . PCP to arrange zio patch Discharged on DAPT, home pravastatin changed to atorvastatin Patient to make arrangement for Neuro with his PCP. They live in [place] and are going back PCP to arrange evaluation for ASMITA per Neuro recs Hypertension Continue home amlodipine and propranolol Hyperlipidemia Continue home statin Diabetes Continue home ozempic HbA1c 5.5 Depression Continue home medications Tremors On propranolol Reports he is on Keppra for tremors too. Will defer that to PCP/Neuro Gout On colchicine and febuxostat Hyponatremia Sodium 132 on admission Na improved to 140 today Total Time Total Time Spent Total Time Spent (In Minutes): 35 Total Time Includes: Examination of the Patient, Discharge Planning and Medication Reconciliation Discharge Plan Discharge Items Patient Disposition: Home - Self-Care Reason For Visit: STROKE LIKE SYMPTOMS Discharge Diagnosis: Possible Transient ischemic attack Hyponatremia Activity: Resume your previous activity Non-emergency contact: Primary Care Provider and Neurologist Call non-emergency contact if: you have any medication questions and your symptoms worsen Follow-up/Referrals: Jessika Babcock MD [Primary Care Provider] - Diet: Carb Consistent or DM2, Heart Healthy and Low Sodium (2gm) Addtl Attending Provider Instructions: Mr Lamb You were brought to the hospital for some difficulty swallowing and problem expressing yourself. You were extensively evaluated. You are being discharged on aspirin and plavix for 3 weeks. Your Pravastatin was changed to atorvastatin. Your Primary Doctor can arrange Zio patch testing/Holter monitoring. You may need to followup with Neurology and or clarify with your Primary Doctor about the indication for the Keppra. It was a pleasure taking care of you. Pending Studies at Discharge: No Stand-Alone Forms: My [facility], Smoking Cessation, Medications to Prevent Stroke Medications and DC Order Prescriptions: New atorvastatin 40 mg Tablet 40 mg PO QAM 30 Days Qty: 30 0RF clopidogrel 75 mg Tablet 75 mg PO QAM 21 Days Qty: 21 0RF aspirin 81 mg Tablet,Delayed Release (Dr/Ec) 81 mg PO QAM 30 Days Qty: 30 0RF Continued levetiracetam 500 mg tablet 500 mg PO BID lorazepam 0.5 mg tablet 0.5 mg PO DAILY PRN (Reason: Anxiety) amlodipine 10 mg tablet 10 mg PO DAILY propranolol 120 mg capsule,extended release 24hr 120 mg PO DAILY colchicine 0.6 mg tablet 0.6 mg PO DAILY metformin 500 mg tablet extended release 24 hr 500 mg PO QAM febuxostat 40 mg tablet 40 mg PO DAILY Ozempic 2 mg/dose (8 mg/3 mL) pen injector 2 mg SUBCUT .WEEK Rx Instructions: Mon venlafaxine 75 mg capsule,extended release 24hr 75 mg PO QAM Rx Instructions: Take with a 150 mg tab. venlafaxine 150 mg capsule,extended release 24hr 150 mg PO QAM Rx Instructions: Take with 75 mg tab trazodone 150 mg Tablet 150 mg PO HS buspirone 15 mg tablet 15 mg PO BID Discontinued pravastatin 80 mg tablet 80 mg PO DAILY Discharge Orders: Discharge Order (Routine); Ordered 10/13/23 Ordered By: Gabriela Cole Admission Data Admit Date/Time: 10/12/23 01:49 Attending Provider: Gabriela Cole I. Admit Provider: Elijah Graham Primary Care Provider: Jessika Babcock Other Providers: Elijah Graham; Sarah Sterling; Derian Cr; Sarah Ramirez; Adrian Putnam; Jose Ramon Gray; Milan Colindres; Bridger Perez; Jessie Solomon; Brent Patricio; Javy Johnson; Clarissa Alcaraz; Richard Arenas; Ruthie Sidhu; Ping Dobbs; Bridger Coppola Other Interventions: Discharge Summary Assessment (RN) Last Done: 10/13/23 14:15
--- NOTE | 2023-10-13 16:58 | Communication Note ---
Date of Service: October 13, 2023 Code 44 Attestation: By CMS guidelines, a determination that the admission or continued stay is not medically necessary has been made by a member of the UR committee and a physician for this hospital stay, therefore a Code 44 will be completed and the Inpatient admission will be changed to outpatient. Dr Josue Ac Member UR Committee
--- NOTE | 2023-10-14 10:37 | Pharmacy Report ---
Pharmacist Stroke Counseling - Date of Service October 14, 2023 - Medications on Discharge: Medication Instructions Recorded Confirmed amlodipine 10 mg tablet 10 mg PO DAILY 10/12/23 10/12/23 buspirone 15 mg tablet 15 mg PO BID 10/12/23 10/12/23 colchicine 0.6 mg tablet 0.6 mg PO DAILY 10/12/23 10/12/23 febuxostat 40 mg tablet 40 mg PO DAILY 10/12/23 10/12/23 levetiracetam 500 mg tablet 500 mg PO BID 10/12/23 10/12/23 lorazepam 0.5 mg tablet 0.5 mg PO DAILY PRN Anxiety 10/12/23 10/12/23 metformin 500 mg tablet,extended 500 mg PO QAM 10/12/23 10/12/23 release 24 hr propranolol 120 mg capsule,24 120 mg PO DAILY 10/12/23 10/12/23 hr,extended release semaglutide 2 mg/dose (8 mg/3 mL) 2 mg subcut .WEEK 10/12/23 10/12/23 subcutaneous pen injector (Ozempic) trazodone 150 mg tablet 150 mg PO HS 10/12/23 10/12/23 venlafaxine 150 mg 150 mg PO QAM 10/12/23 10/12/23 capsule,extended release 24 hr venlafaxine 75 mg capsule,extended 75 mg PO QAM 10/12/23 10/12/23 release 24 hr Medication Instructions Recorded aspirin 81 mg tablet,delayed 81 mg PO QAM 30 days #30 tabs 10/13/23 release atorvastatin 40 mg tablet 40 mg PO QAM 30 days #30 tabs 10/13/23 clopidogrel 75 mg tablet 75 mg PO QAM 21 days #21 tabs 10/13/23 - Action: Patient's caregiver refuses counseling at this time. - Outcome: The patient and/or patient representative phlebotomy services(s) report that they understand changes with medications. Called preferred contact and answering phone. is not available. She reports she helps out with medications at home and declines needing any counseling. She reports they were able to pick pulling machine tender new medications and they do not have any questions. I recommended they bring an updated list with them tomorrow to his PCP visit and she plans to do so. Thank you for allowing pharmacy to be involved in the care of this patient. Please call [phone] with any additional questions
--- NOTE | 2023-10-16 06:50 | Electroencephalogram ---
EEG Procedure Note Date of Service October 13, 2023 Start / End Times Start Time: 07:59 End Time: 08:[address] Morgan Graham History A 67 year old male with aphasia and memory problems. EEG performed for evaluation of epileptiform activity. Home Medication List Medication Instructions Recorded Confirmed Type amlodipine 10 mg tablet 10 mg PO DAILY 10/12/23 10/12/23 History buspirone 15 mg tablet 15 mg PO BID 10/12/23 10/12/23 History colchicine 0.6 mg tablet 0.6 mg PO DAILY 10/12/23 10/12/23 History febuxostat 40 mg tablet 40 mg PO DAILY 10/12/23 10/12/23 History levetiracetam 500 mg tablet 500 mg PO BID 10/12/23 10/12/23 History lorazepam 0.5 mg tablet 0.5 mg PO DAILY PRN Anxiety 10/12/23 10/12/23 History metformin 500 mg tablet,extended 500 mg PO QAM 10/12/23 10/12/23 History release 24 hr propranolol 120 mg capsule,24 120 mg PO DAILY 10/12/23 10/12/23 History hr,extended release semaglutide 2 mg/dose (8 mg/3 mL) 2 mg subcut .WEEK 10/12/23 10/12/23 History subcutaneous pen injector (Ozempic) trazodone 150 mg tablet 150 mg PO HS 10/12/23 10/12/23 History venlafaxine 150 mg 150 mg PO QAM 10/12/23 10/12/23 History capsule,extended release 24 hr venlafaxine 75 mg capsule,extended 75 mg PO QAM 10/12/23 10/12/23 History release 24 hr aspirin 81 mg tablet,delayed 81 mg PO QAM 30 days #30 tabs 10/13/23 Rx release atorvastatin 40 mg tablet 40 mg PO QAM 30 days #30 tabs 10/13/23 Rx clopidogrel 75 mg tablet 75 mg PO QAM 21 days #21 tabs 10/13/23 Rx Inpatient Medication List Discontinued Medications Amlodipine Besylate (Amlodipine Besylate 5 Mg Tab) 10 mg PO DAILY RANDY Stop: 11/11/23 08:59 Last Admin: 10/13/23 08:39 Dose: 10 mg Documented By: Admin: 10/12/23 08:08 Dose: 10 mg Documented By: KHADRA Aspirin (Aspirin Chew 324 Mg) 324 mg PO NOW STA Stop: 10/12/23 00:44 Last Admin: 10/12/23 00:54 Dose: 324 mg Documented By: MICKEY Aspirin (Aspirin 81 Mg Ectab) 81 mg PO [facility] Stop: 11/11/23 13:14 Last Admin: 10/12/23 13:25 Dose: Not Given Documented By: KHADRA Aspirin (Aspirin 81 Mg Ectab) 81 mg PO [facility] Stop: 11/12/23 08:59 Last Admin: 10/13/23 08:41 Dose: 81 mg Documented By: KHADRA Atorvastatin Calcium (Atorvastatin 40 Mg Tab) 40 mg PO [facility] Stop: 10/12/23 00:44 Last Admin: 10/12/23 00:54 Dose: 40 mg Documented By: MICKEY Atorvastatin Calcium (Atorvastatin 40 Mg Tab) 40 mg PO [facility] Stop: 11/12/23 08:59 Last Admin: 10/13/23 08:40 Dose: 40 mg Documented By: KHADRA Buspirone HCl (Buspirone 15 Mg Tab) 15 mg PO BID [facility] Stop: 11/11/23 08:59 Last Admin: 10/13/23 08:38 Dose: 15 mg Documented By: Admin: 10/12/23 20:40 Dose: 15 mg Documented By: Admin: 10/12/23 08:09 Dose: 15 mg Documented By: KHADRA Clopidogrel Bisulfate (Clopidogrel Bisulfate 75 Mg Tab) 75 mg PO NOW ONE Stop: 10/12/23 13:17 Last Admin: 10/12/23 14:55 Dose: 75 mg Documented By: KHADRA Clopidogrel Bisulfate (Clopidogrel Bisulfate 75 Mg Tab) 75 mg PO [facility] Stop: 11/12/23 08:59 Last Admin: 10/13/23 08:41 Dose: 75 mg Documented By: KHADRA Colchicine (Colchicine 0.6 Mg Tab) 0.6 mg PO DAILY [facility] Stop: 11/11/23 08:59 Last Admin: 10/13/23 08:39 Dose: 0.6 mg Documented By: Admin: 10/12/23 08:08 Dose: 0.6 mg Documented By: KHADRA Enoxaparin Sodium (Enoxaparin Inj 40 Mg/0.4 Ml Syr) 40 mg SQ [facility] Stop: 11/12/23 08:59 Last Admin: 10/13/23 08:48 Dose: 40 mg Documented By: KHADRA Gadobutrol (Gadobutrol 30ml Vial) 9 ml IV ONCE ONE Stop: 10/12/23 13:49 Last Admin: 10/12/23 13:49 Dose: 9 ml Documented By: VICKY Sodium Chloride (Nss) 500 mls @ 999 mls/hr IV .Q31M ONE Stop: 10/12/23 01:13 Last Infusion: 10/12/23 01:27 Dose: Infused Documented By: Admin: 10/12/23 00:59 Dose: 999 mls/hr Documented By: MICKEY Magnesium Sulfate/Dextrose (Magnesium Sulfate / D5w) 1 gm in 100 mls @ 200 mls/hr IV Q30M [facility]Y Stop: 10/12/23 01:44 Last Infusion: 10/12/23 02:00 Dose: Infused Documented By: Admin: 10/12/23 01:27 Dose: 200 mls/hr Documented By: Infusion: 10/12/23 01:24 Dose: Infused Documented By: Admin: 10/12/23 00:54 Dose: 200 mls/hr Documented By: MICKEY Sodium Chloride (Nss) 500 mls @ 125 mls/hr IV .Q4H [facility]Y Stop: 11/11/23 00:44 Last Infusion: 10/12/23 03:01 Dose: Infused Documented By: Admin: 10/12/23 00:59 Dose: 125 mls/hr Documented By: MICKEY Sodium Chloride (Nss) 1,000 mls @ 100 mls/hr IV .Q10H [facility]Y Stop: 10/12/23 12:53 Last Infusion: 10/12/23 13:09 Dose: Infused Documented By: Admin: 10/12/23 03:09 Dose: 100 mls/hr Documented By: ANDREWS Acetaminophen (Ofirmev) 1,000 mg in 100 mls @ 400 mls/hr IV NOW STA Stop: 10/12/23 03:35 Last Infusion: 10/12/23 04:15 Dose: Infused Documented By: Admin: 10/12/23 03:48 Dose: 400 mls/hr Documented By: ANDREWS Insulin Aspart (Insulin Aspart Per Unit Charge) 0 units SC Q6 [facility] Stop: 11/11/23 05:59 Last Admin: 10/12/23 17:15 Dose: Not Given Documented By: Admin: 10/12/23 12:19 Dose: Not Given Documented By: Admin: 10/12/23 06:36 Dose: Not Given Documented By: ANDREWS Insulin Aspart (Insulin Aspart Per Unit Charge) 0 units SC ACHS [facility]Y Stop: 11/11/23 20:59 Last Admin: 10/13/23 11:43 Dose: Not Given Documented By: Admin: 10/13/23 07:26 Dose: Not Given Documented By: Admin: 10/12/23 20:38 Dose: Not Given Documented By: TIMO Ioversol (Optiray 320 125ml) 119 ml IV ONCE ONE Stop: 10/11/23 23:30 Last Admin: 10/11/23 23:30 Dose: 119 ml Documented By: JAMILAH Levetiracetam (Levetiracetam 500 Mg Tab) 500 mg PO BID [facility] Stop: 11/11/23 08:59 Last Admin: 10/13/23 08:40 Dose: 500 mg Documented By: Admin: 10/12/23 20:40 Dose: 500 mg Documented By: Admin: 10/12/23 08:09 Dose: 500 mg Documented By: KHADRA Miscellaneous (Patient's Height &/Or Weight Needed) 1 each N/A NOW STA Stop: 10/11/23 23:40 Last Admin: 10/12/23 00:04 Dose: Not Given Documented By: MICKEY Anguiano (Febuxostat 40 Mg - Order Awaiting Action) 1 each N/A QS [facility] Stop: 11/11/23 08:29 Last Admin: 10/13/23 07:27 Dose: Not Given Documented By: Admin: 10/12/23 23:08 Dose: Not Given Documented By: Admin: 10/12/23 12:20 Dose: Not Given Documented By: Admin: 10/12/23 08:10 Dose: Not Given Documented By: KHADRA Gutiérrezcellaneous Information (Patient's Allergy Info Needs Entered) 1 each N/A NOW STA Stop: 10/11/23 23:40 Last Admin: 10/12/23 00:04 Dose: Not Given Documented By: MICKEY Pravastatin Sodium (Pravastatin Sod 40 Mg Tab) 80 mg PO DAILY [facility] Stop: 11/11/23 08:59 Last Admin: 10/12/23 08:09 Dose: 80 mg Documented By: KHADRA Propranolol HCl (Propranolol Hcl 60 Mg [place]) 120 mg PO DAILY [facility] Stop: 11/11/23 08:59 Last Admin: 10/13/23 08:38 Dose: 120 mg Documented By: Admin: 10/12/23 08:09 Dose: 120 mg Documented By: KHADRA Trazodone HCl (Trazodone Hcl 50 Mg Tab) 150 mg PO HS [facility] Stop: 11/11/23 20:59 Last Admin: 10/12/23 20:39 Dose: 150 mg Documented By: TIMO Venlafaxine HCl (Venlafaxine Hcl Xr 75 Mg Capxr) 75 mg PO QAM [facility] Stop: 11/11/23 08:59 Last Admin: 10/13/23 08:40 Dose: 75 mg Documented By: Admin: 10/12/23 08:09 Dose: 75 mg Documented By: KHADRA Venlafaxine HCl (Venlafaxine Hcl Xr 150 Mg Capxr) 150 mg PO QAM [facility] Stop: 11/11/23 08:59 Last Admin: 10/13/23 08:39 Dose: 150 mg Documented By: Admin: 10/12/23 08:09 Dose: 150 mg Documented By: KHADRA Description This is a 21 electrode EEG with a single channel dedicated to limited EKG. The electrodes were placed in accordance with the International 10-20 system. REPORT: At the onset of the EEG, the patient is awake. The background activity consists of 9 Hz, persistent, posteriorly dominant, moderate amplitude, symmetric and rhythmic activity that is reactive to eye opening. Anteriorly, it consists of a mixture of low voltage indeterminate activity. Stepwise intermittent photic stimulation (1-23 Hz) does not induce any abnormalities. Drowsiness is characterized by low amplitude mixed frequency activity, roving eye movements, and decreased eye blinking and muscle artifact. Interpretation IMPRESSION: This is a normal awake and drowsy routine EEG. There is no evidence of focal slowing or epileptiform activity.
== END 2023-10-13 14:48 | disposition home or self-care (01) ==
LOC: ED 23:16 → INTOOBSV 10-12 01:49 → 2S 10-12 01:49